=== PATIENT | female | born 1980 | race Caucasian/White ===

== ENCOUNTER → 2023-09-18 | Outpatient (CLI) | payer OTHER | LOC: M WHC 06:43 | PROVIDERS: ATTEND Physician Assistant | DX: Z12.31 Encounter for screening mammogram for malignant neoplasm of breast (principal) ==

== ENCOUNTER → 2024-01-22 | Outpatient (REF) | payer OTHER | LOC: M LAB 10:45 → M LAB REF 10:45 | PROVIDERS: ATTEND Family Medicine | DX: R10.13 Epigastric pain (principal) ==

== ENCOUNTER → 2024-01-27 | Outpatient (CLI) | payer OTHER | LOC: M PLAIMG 13:15 | PROVIDERS: ATTEND Family Medicine | DX: M54.6 Pain in thoracic spine (principal); M54.50 Low back pain, unspecified; M25.511 Pain in right shoulder ==

== ENCOUNTER → 2024-04-30 | Outpatient (REF) | payer OTHER | LOC: M SFHCDERM 12:32 | PROVIDERS: ATTEND Physician Assistant | DX: L57.0 Actinic keratosis (principal) ==